=== PATIENT | male | born 2000 | race Caucasian/White ===

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

== ENCOUNTER → 2018-08-09 15:12 | Outpatient (CLI) | payer BC, SELFPAY ==
[2017-04-12 19:43] VITALS: BMI 32.8
[2018-08-09 17:52] LABS: Absolute Lymphocyte Count 2.28 X10^3/ul (0.83-4.51); Absolute Neutrophil Count 4.4 X10^3/uL (2.0-7.7); Basophil# 0.05 X10^3/uL; Basophil% 0.7 % (0-1); Eosinophil# 0.25 X10^3/uL; Eosinophils% 3.3 % (0-5); Hematocrit 44.7 % (40-54); Hemoglobin 15.4 g/dl (13.0-16.5); Lymphocyte # 2.28 X10^3/ul (4.0); Lymphocyte % 30.1 % (19-41); Mean Corp Hgb Conc 34.5 g/gl (32-36); Mean Corpuscular Hgb 29.1 pg (27.0-32.0); Mean Corpuscular Volume 84.3 fL (80-94); Mean Platelet Vol. 9.7 fl (6.2-12.0); Monocyte# 0.58 X10^3/uL; Monocyte% 7.7 % (0-10); Neutrophil # 4.36 X10^3/uL (2.7-7.7); Neutrophil % 57.4 % (47-70); Platelet Count 352 K/mm3 (150-450); RBC Distribution Width CV 12.8 % (11.6-14.6); RBC Distribution Width SD 39.5 fl (35.1-43.9); White Blood Count 7.6 K/mm3 (4.4-11.0)
[2018-08-09 17:55] LABS: POSITIVE COUNT NO; POSITIVE DIFFERENTIAL NO; POSITIVE MORPHOLOGY NO
[2018-08-09 18:06] LABS: Amylase 50 U/L (25-115); Lipase 98 U/L (73-393)
== END ==
PROVIDERS: Family Provider Family Medicine; PCP Family Medicine; Visit Provider Family Medicine
DX: R10.13 Epigastric pain (principal)
CPT/HCPCS: 36415; 82150; 83690; 85025

== ENCOUNTER 2020-07-19 17:27 | Emergency (ER) | payer OTHER, SELFPAY ==
[2020-07-19 17:28] VITALS: BP 116/53; PULSE 52; RESP 16; TEMP 35.7; O2SAT 97
--- NOTE | 2020-07-19 17:50 | RAD_ITS ---
STUDY: X-RAY - RIGHT HAND, ATTENTION THIRD FINGER REASON FOR EXAM: Male, 20 years old. Injury/Pain TECHNIQUE: 3 view(s) of the finger were obtained. COMPARISON: None. FINDINGS: Normal metacarpal head. Normal metacarpophalangeal joint. Normal proximal phalanx. Normal middle phalanx. There is a comminuted fracture of the distal phalanx with soft tissue laceration. Normal proximal interphalangeal joint. Normal distal interphalangeal joint. RAD/Finger(s) Min 2 Views IMPRESSION: There is a comminuted fracture of the distal phalanx with soft tissue laceration. Electronically Signed: Balwinder Tapia DO at 18:58 EDT Tel [phone], Service support ,
--- NOTE | 2020-07-19 18:22 | ED.VIS.UPPEX ---
History of Present Illness Chief Complaint: Laceration Informant: Patient Occurred: Today Narrative: Patient is a 20-year-old male with no significant past medical history presenting with injury to his right middle finger. He is right-hand dominant. 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 He immediately had pain to the distal aspect of the right middle finger. He is not sure his last tetanus was. He is having a hard time moving the distal aspect of his finger. He denies any other complaints or injuries. Tetanus Immunization: Unknown Past Medical History - Allergies and Home Meds Allergies/Adverse Reactions: Allergies No Known Allergies Allergy (Verified 07/19/20 17:29) Primary Care Physician: Fabián Pollock MD [Primary Care Provider] - Past Medical History: None Surgical History: noncontributory Smoking Status: Never smoker Review of Systems General: Denies: Chills, Fever, Sweats Eyes: Denies: Visual changes - bilaterally, Diplopia ENT: Denies: Rhinorrhea, Sore throat Cardiovascular: Denies: Chest pain, Palpitations Respiratory: Denies: Dyspnea, Cough, Dyspnea on exertion Gastrointestinal: Denies: Abdominal pain, Nausea, Vomiting Musculoskeletal: Reports: Extremity Pain - right middle finger . Denies: Back pain Skin: Reports: Wounds - right middle finger . Denies: Rash Neurological: Reports: Parasthesia - tip of right finger . Denies: Headache, Weakness Physical Exam Vital Signs/Narrative: Vital Signs Temp Pulse Resp BP Pulse Ox 07/19/20 17:28 96.3 F L 52 L 16 116/53 L 97 Inital Vital Signs reviewed: Yes Right Hand: Negative for: Abrasion, Contusion, Deformity, Limited ROM Right Finger: - - Mallet finger deformity of right long finger. Irregular full-thickness laceration over the pad of the right finger. Subungual hematoma noted. Laceration noted at the base of the nail of the right middle finger. General: Well nourished, Well developed Head: Normocephalic, Atraumatic Eyes: Perrl, EOMI ENT: No Trauma, Moist Mucous Membranes Neck: Nontender, Full ROM Cardiovascular: Regular rate, Regular rhythm, No murmurs Respiratory: No distress, CTA bilaterally, Chest nontender Back: Nontender Skin: Normal color, No rash Neurological: Alert, Oriented x3, Cranial nerves II-XII grossly intact, Normal Strength, Normal Sensation Psychological: Normal affect Diagnostic/Tx/Re-eval Clinical Impression(s) from Imaging Studies Finger X-Ray 07/19/20 17:50 IMPRESSION: There is a comminuted fracture of the distal phalanx with soft tissue laceration. Electronically Signed: Balwinder TapiaDO at 18:58 EDT Tel [phone], Service support , - Medical Decision Making Evaluated for crush injury to his distal right long finger. Patient has significantly comminuted distal phalanx fracture that is open. He is given 4 morphine. He is given Ancef and tetanus is updated. Wound soaked in Betadine. Patient has some decrease sensation and a mallet finger deformity but is otherwise neurovascularly intact. No other injuries. Discussed with hand surgery on-call at [facility], Dr. Chaudhry, who states he be happy to evaluate the patient in the ER tonight. Patient will go by private vehicle to [facility]. Report is given to Dr. Vaca in the ED. patient and family are comfortable with this plan. They are offered medical transport but declined stating they will drive himself. Wet to dry dressing is placed and a splint is placed on the hand. ED Disposition - Plan for ED Patient: Disposition: [facility] Diagnosis: Open fracture of distal phalanx Referrals: Fabián Pollock MD [Primary Care Provider] - Additional Instructions: Go straight to [facility] emergency room
[2020-07-19] MEDS: Diphth,Pertuss(Acell),Tet Vac 0.5 ML Vial IM (18:38)
[2020-07-19] MEDS: morphine 8 MG/ML Syringe 4 MG IV (18:39)
[2020-07-19] MEDS: Cefazolin 1 GM/50 ML BAG IV (19:59)
[2020-07-19 20:55] VITALS: BP 123/72; PULSE 75; RESP 16; O2SAT 97
[2020-07-19] MEDS: Morphine 4 MG/ML Syringe IV (20:56)
== END 2020-07-19 21:09 | disposition short-term general hospital (02) ==
PROVIDERS: Emergency Provider Emergency Medicine; PCP Family Medicine
DX: S62.662B Nondisplaced fracture of distal phalanx of right middle finger, initial encounter for open fracture (principal); Z23 Encounter for immunization; W30.89XA Contact with other specified agricultural machinery, initial encounter; Y93.89 Activity, other specified; Y92.79 Other farm location as the place of occurrence of the external cause; Y99.8 Other external cause status
CPT/HCPCS: 73140; 90715; 96365; 96375; 96376; 99285; J7050; A4216

== ENCOUNTER → 2020-10-17 09:02 | Outpatient (CLI) | payer OTHER, SELFPAY ==
--- NOTE | 2020-10-17 09:06 | RAD_ITS ---
STUDY: X-RAY - RIGHT ANKLE REASON FOR EXAM: Right ankle pain and swelling, right ankle injury last night. TECHNIQUE: 3 view(s) of the ankle. COMPARISON: None. FINDINGS: Normal visualized distal tibia and fibula. Normal medial and lateral malleoli. Normal tibiotalar articulation and ankle mortise. Normal visualized talus and calcaneus. The visualized subtalar, talonavicular, calcaneocuboid and tarsal articulations are normal. There is soft tissue swelling overlying the lateral malleolus. RAD/Ankle min 3 Views IMPRESSION: Soft tissue swelling. No demonstrated fracture. Electronically Signed: Gonzalez Boyle MD at 11:13 EDT Tel , Service support ,
== END ==
PROVIDERS: PCP Family Medicine; Referring Provider Family Medicine; Visit Provider Family Medicine
DX: M25.571 Pain in right ankle and joints of right foot (principal)
CPT/HCPCS: 73610